=== PATIENT | male | born 1980 | race Asian ===

== ENCOUNTER 2017-04-09 14:05 | Emergency (ER) | payer OTHER ==
[~2017-04-09] VITALS: Ht 180.3 cm; Wt 86.2 kg
[2017-04-09 14:00] VITALS: TEMP 97.8
[2017-04-09 14:24] LABS: PLATELET COUNT 435 K/uL (142-355)
[2017-04-09 14:31] LABS: SODIUM 133 mmol/L (136-145)
[2017-04-09 15:45] VITALS: BP 167/101
== END 2017-04-09 16:50 | disposition home or self-care (01) ==
LOC: ED 14:05
DX: F19.10 Other psychoactive substance abuse, uncomplicated (principal)
CPT/HCPCS: 36415; 80053; 80307; 81000; 82150; 83690; 85027; 86318; 96361; 96374; 96375; 99284; G0479; J1885; J2060; J2405

== ENCOUNTER 2017-04-28 15:13 | Emergency (ER) | payer OTHER ==
[~2017-04-28] VITALS: Ht 182.9 cm; Wt 78.5 kg
[2017-04-28 15:53] LABS: PLATELET COUNT 531 K/uL (142-355)
[2017-04-28 15:56] LABS: POTASSIUM 3.9 mmol/L (3.6-5.2); SODIUM 133 mmol/L (136-145)
[2017-04-28 20:08] VITALS: BP 142/86; TEMP 97.9
== END 2017-04-28 20:13 | disposition home or self-care (01) ==
LOC: ED 15:13
PROVIDERS: Specialist
DX: K85.90 Acute pancreatitis without necrosis or infection, unspecified (principal)
CPT/HCPCS: 80053; 81000; 82150; 83690; 83735; 85027; 96372; 96374; 99284; J2175; J2550

== ENCOUNTER 2017-05-04 07:54 | Emergency (ER) | payer OTHER ==
[~2017-05-04] VITALS: Ht 182.9 cm; Wt 78.5 kg
[2017-05-04 07:48] VITALS: TEMP 98.9
[2017-05-04 08:30] LABS: PLATELET COUNT 490 K/uL (142-355)
[2017-05-04 08:49] LABS: POTASSIUM 3.8 mmol/L (3.6-5.2); SODIUM 134 mmol/L (136-145)
[2017-05-04 10:26] VITALS: BP 132/78
== END 2017-05-04 10:27 ==
LOC: ED 07:54
PROVIDERS: Specialist
DX: R10.9 Unspecified abdominal pain (principal)
CPT/HCPCS: 36415; 80053; 82150; 83690; 85027; 86318; 96372; 99283; J2175; J2550

== ENCOUNTER 2018-07-19 19:05 | Emergency (ER) | payer OTHER ==
[~2018-07-19] VITALS: Ht 167.6 cm; Wt 77.1 kg
[2018-07-19 19:42] LABS: PLATELET COUNT 472 K/uL (142-355)
[2018-07-19 19:50] LABS: POTASSIUM 3.7 mmol/L (3.6-5.2)
[2018-07-19 23:37] LABS: POTASSIUM 3.7 mmol/L (3.6-5.2)
[2018-07-20 00:15] VITALS: BP 112/65; TEMP 98.6
== END 2018-07-20 00:18 | disposition home or self-care (01) ==
LOC: ED 19:05
DX: F19.10 Other psychoactive substance abuse, uncomplicated (principal)
CPT/HCPCS: 80048; 80053; 80307; 81000; 82150; 83690; 85027; 96365; 96374; 99284; J2405; J7120; Q9963

== ENCOUNTER 2018-12-07 04:36 | Emergency (ER) | payer OTHER ==
[~2018-12-07] VITALS: Ht 182.9 cm; Wt 81.6 kg
[2018-12-07 04:57] LABS: PLATELET COUNT 467 K/uL (142-355)
[2018-12-07 05:11] LABS: POTASSIUM 4.9 mmol/L (3.6-5.2)
[2018-12-07 08:01] VITALS: BP 132/66; TEMP 98.3
== END 2018-12-07 08:01 | disposition home or self-care (01) ==
LOC: ED 04:36
PROVIDERS: Emergency Medicine
DX: S40.012A Contusion of left shoulder, initial encounter (principal); R11.2 Nausea with vomiting, unspecified; V89.2XXA Person injured in unspecified motor-vehicle accident, traffic, initial encounter
CPT/HCPCS: 36415; 80053; 80307; 81000; 82150; 82550; 82553; 83690; 84484; 85027; 93005; 96361; 96374; 96375; 96376; 99284; J1885; J2405; J2550; Q9963